=== PATIENT | female | born 1965 | race Caucasian/White ===

== ENCOUNTER 2024-03-21 10:05 | Emergency (ER) | payer BC, SELFPAY ==
[2024-03-21 10:12] VITALS: BP 124/78
[2024-03-21 10:35] LABS: % Basophils 0.8 % (0-2); % Eosinophils 2.4 % (0-6); % Immature Granulocytes 0.4 % (0-0.5); % Lymphocytes 21.4 % (20.5-51.1); % Monocytes 7.6 % (1.7-9.3); % Neutrophils 67.4 % (42.2-75.2); Absolute Basophils 0.1 10^3/uL (0-0.2); Absolute Eosinophils 0.2 10^3/uL (0-0.7); Absolute Lymphocytes 1.6 10^3/uL (1.2-3.4); Absolute Monocytes 0.6 10^3/uL (0.1-0.6); Hematocrit 45.8 % (37.0-47.0); Hemoglobin 15.1 g/dL (12.0-16.0); Mean Corpuscular Hgb 29.6 pg (27.0-31.0); Mean Corpuscular Volume 89.8 fL (81.0-99.0); Mean Platelet Volume 9.1 fL (7.4-10.4); Nucleated Red Blood Cells % 0 %; Platelet Count 372 10^3/uL (130-400); Red Cell Dist. Width 12.4 % (11.5-14.5); White Blood Cell Count 7.5 10^3/uL (4.8-10.8)
[2024-03-21 10:48] LABS: ALT (SGPT) 25 U/L (0-35); AST (SGOT) 25 U/L (14-36); Albumin 4.5 g/dl (3.5-5.0); Alkaline Phosphatase 74 U/L (38-126); Blood Urea Nitrogen 23 mg/dl (7-17); Calcium 10.7 mg/dl (8.4-10.2); Carbon Dioxide 24 mmol/L (22-30); Chloride 105 mmol/L (98-107); Glucose 118 mg/dl (70-99); Potassium 4.2 mmol/L (3.5-5.1); Sodium 138 mmol/L (135-145); Total Bilirubin 0.5 mg/dl (0.2-1.3); eGFR > 60.00
[2024-03-21 10:58] LABS: Troponin I < 0.012 ng/ml
--- NOTE | 2024-03-21 11:07 | ED.GENMED ---
History of Present Illness
General
Chief Complaint: Chest Pain
Source: patient
Exam Limitations: none
Time Seen by Provider: 03/21/24 10:47
History of Present Illness
History of Present Illness:
58-year-old female with history of hypothyroidism presents complaining of onset of chest pain at 9 PM. She described this pressure to the center of her chest on the left side. She notes intermittent symptoms since then. No diaphoresis or nausea.
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 There was some nausea associated with this. 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
this discomfort. No leg swelling or calf pain. No recent travel or surgery. Pain is not pleuritic. The pain does not radiate to the neck arm or back.
Past History
Past History
ED Past Medical History: None
ED Past Surgical History: Orthopedic
Social History
Tobacco: Non-smoker
Alcohol: None
Drug: None
Personal:
Living: with family
Phy Exam
Physical Exam
Physical Exam:
General: Well-appearing female no acute respiratory distress
HEENT: Normocephalic atraumatic
Heart: Regular rate and rhythm no murmurs
Lungs: Clear no wheeze or rales
Abdomen: Soft nontender
Extremities: No cyanosis or edema
Scores
Heart Score for Chest Pain Patients
STEMI patient?: No
History: Slightly or Non-Suspicious
ECG: Normal
Age: >45 - <65 years
Risk Factors: 1 or 2 Risk Factors
Troponin: </= Normal Limit
Heart Score for Chest Pain Patients: 2
Heart Score Risk: 2.5% MACE over next 6 weeks
Course
Orders/Labs/Results
Orders:
Orders
03/21/24
Electrocardiogram (*1) Stat
Comment: DONE EMR
03/21/24 10:07
ECG [Electrocardiogram (*1)] Urgent
Reason for Study: Chest Pain
EKG- Treatment ONCE
03/21/24 10:20
Complete Blood Count/With Diff Urgent
Comprehensive Metabolic Panel Urgent
Free T4 Urgent
TSH Reflex To Free T4 Urgent
Troponin I Urgent
03/21/24 11:03
CR Chest - 2 Views Urgent
Comment:
Reason For Exam: chest pain
03/21/24 13:35
Troponin I Urgent
Abnormal Lab Results
03/21/24
10:20
BUN 23 H mg/dl
(7-17)
Glucose 118 H mg/dl
(70-99)
Calcium 10.7 H mg/dl
(8.4-10.2)
TSH (Reflex) 0.39 L uIU/ml
(0.47-4.68)
03/21/24 10:20
03/21/24 10:20
Vital Signs
Initial and Last Documented VS:
Initial Vital Signs
Temp Pulse Resp BP Pulse Ox
98.3 F 80 16 124/78 99
03/21/24 10:12 03/21/24 10:12 03/21/24 10:12 03/21/24 10:12 03/21/24 10:12
Last Documented Vital Signs
Temp Pulse Resp BP Pulse Ox
98.3 F 55 20 112/75 98
03/21/24 10:12 03/21/24 12:15 03/21/24 12:15 03/21/24 12:00 03/21/24 12:15
MDM/Problems Addressed
Differential Diagnosis Includes:
Chest pain. Consider ACS versus musculoskeletal chest pain. No risk factors for PE pain is not pleuritic vital signs are stable. Do not suspect PE or dissection.
EKG shows sinus rhythm without ischemic changes. Initial troponin pending but will require repeat troponin. Chest x-ray pending.
*Critical Care Note
Total Time (30-74mins, 75-104mins- exclusive of procedures): Not Applicable
Update Note
Update Note:
Initial and repeat troponins both undetectable. Chest x-ray clear. Patient is nontoxic upon reassessment. Vital signs remained stable. Patient here with atypical chest pain no indication for admission. Will do chest pain follow-up. Return
precautions were given otherwise
ED Attending Note
-
Portions of this chart may have been created with voice recognition software.� Occasional wrong word or��sound alike� substitutions may have occurred due to the inherent limitations of voice recognition software.
Discharge Plan
Departure
Patient Disposition: Home (Routine Discharge)
Date of Disposition: 03/21/24
Time of Disposition: 14:33
Patient with high blood pressure during this ER visit?: No
Discharge Problem:
Chest pain
Instructions: Chest Pain DCA Follow Up
Prescriptions:
No Action
amoxicillin-pot clavulanate 1 TABLET tablet
1 tab PO Q12 Qty: 19 0RF
diazepam 2 MG tablet
2 mg PO TIDPRN PRN (Reason: Pain, spasm) Qty: 10 0RF
Referrals:
Robert Weston MD [Family Provider] -
Activity Restrictions/Additional Instructions:
Please return here for any worsening symptoms. Continue current medication. Follow-up with cardiology for further evaluation
Interventions
Interventions:
*Risk Screen - Suicide Last Done: 03/21/24 10:12
*General Assessment Last Done: 03/21/24 11:40
*Neglect/Abuse Screening Last Done: 03/21/24 10:12
ED- Cardiac Assessment Last Done: 03/21/24 11:40
Discharge Date and Time
Print Language: TAJIK
[2024-03-21 11:17] LABS: TSH Reflex To Free T4 0.39 uIU/ml (0.47-4.68)
[2024-03-21 11:38] VITALS: BMI 25.9
[2024-03-21 11:44] VITALS: BP 112/73
[2024-03-21 11:46] LABS: Free T4 1.51 ng/dl (0.78-2.19)
[2024-03-21 12:00] VITALS: BP 112/75
[2024-03-21 13:00] VITALS: BP 116/70
[2024-03-21 13:40] VITALS: BP 123/71
[2024-03-21 14:00] VITALS: BP 116/74
[2024-03-21 14:19] LABS: Troponin I < 0.012 ng/ml
== END 2024-03-21 15:41 | disposition home or self-care (01) ==
LOC: EMR 10:05
PROVIDERS: Physician Assistant; Student in an Organized Health Care Education/Training Program; EMERGENCY PHYSICIAN Student in an Organized Health Care Education/Training Program; FAMILY PHYSICIAN Family Medicine
DX: R07.89 Other chest pain (principal); E03.9 Hypothyroidism, unspecified
CPT/HCPCS: 99285; 71046; 80053; 84439; 84443; 84484; 85025; 93005

== ENCOUNTER → 2024-05-12 07:13 | Outpatient (REF) | payer BC, SELFPAY | LOC: HWRCS 07:13 | PROVIDERS: ATTENDING PHYSICIAN Internal Medicine Cardiovascular Disease; FAMILY PHYSICIAN Family Medicine | DX: R06.02 Shortness of breath (principal) | CPT/HCPCS: 93306 ==

== ENCOUNTER → 2024-06-05 10:18 | Outpatient (REF) | payer BC, SELFPAY | LOC: RCS 10:18 | PROVIDERS: ATTENDING PHYSICIAN Internal Medicine Cardiovascular Disease; FAMILY PHYSICIAN Family Medicine | DX: R06.02 Shortness of breath (principal) | CPT/HCPCS: 93017 ==

== ENCOUNTER → 2024-06-23 12:12 | Outpatient (REF) | payer BC, SELFPAY | LOC: HWRCS 12:12 | PROVIDERS: ATTENDING PHYSICIAN Internal Medicine Cardiovascular Disease; FAMILY PHYSICIAN Family Medicine | DX: I25.9 Chronic ischemic heart disease, unspecified (principal); M21.371 Foot drop, right foot | CPT/HCPCS: 78452; 93017; A9500; J2785 ==